=== PATIENT | male | born 2000 | race Caucasian/White ===

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

== ENCOUNTER 2020-05-19 16:20 | Emergency (ER) | payer OTHER ==
[2020-05-19 16:23] VITALS: BP 167/79; PULSE 78; RESP 18; TEMP 98.5
--- NOTE | 2020-05-19 17:45 | CT ---
EXAMINATION TYPE: CT brain shilpi wo con DATE OF EXAM: 05/19/2020 COMPARISON: None HISTORY: Posterior head injury. Headache and neck pain with dizziness. CT DLP: 1270.5 mGycm Automated exposure control for dose reduction was used. Images obtained of the brain and cervical spine without contrast. There is slight enlargement of the ventricles for the patient's young age. There is no mass effect no r midline shift. There is no sign of intracranial hemorrhage. The calvarium is intact. The skull base is intact. There is normal aeration of the mastoid sinuses. There is moderate mucosal thickening in the right maxillary sinus. The cervical vertebra have normal spacing and alignment. Posterior elements are intact. Facet joints are intact. Prevertebral soft tissues appear normal. IMPRESSION: Negative CT scan of the cervical spine. Negative CT scan of the brain. No evidence of acute traumatic injury of the brain and cervical spine. Very mild prominence of the ventricles for the patient's young age.
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
== END 2020-05-19 18:33 | disposition home or self-care (01) ==
LOC: EC 16:20
DX: S06.0X9A Concussion with loss of consciousness of unspecified duration, initial encounter (principal); V19.9XXA Pedal cyclist (driver) (passenger) injured in unspecified traffic accident, initial encounter; Y93.55 Activity, bike riding
CPT/HCPCS: 70450; 72125

== ENCOUNTER 2022-06-20 22:11 | Emergency (ER) | payer OTHER ==
[2022-06-20] MEDS ORDERED: NICOTINE 21MG/24HR PATCH TRANSDERM STA (22:49)
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
[2022-06-21 00:17] LABS: Appearance,Urine Clear (Clear); Bilirubin,Urine Negative (Negative); Blood,Urine Negative (Negative); Color,Urine Light Yellow; Glucose,Urine (UA) Negative (Negative); Ketones,Urine Negative (Negative); Leukocyte Esterase,Urine Negative (Negative); Nitrite,Urine Negative (Negative); Protein,Urine Negative (Negative); Specific Gravity,Urine 1.006 (1.001-1.035); Urobilinogen,Urine <2.0 mg/dL (<2.0)
[2022-06-21 00:27] LABS: Amphetamine Screen,Urine Not Detected (NotDetected); Barbiturate Screen,Urine Not Detected (NotDetected); Benzodiazepines Screen,Urine Not Detected (NotDetected); Cocaine Screen,Urine Not Detected (NotDetected); Methadone Screen, Urine Not Detected (NotDetected); Opiate Screen,Urine Not Detected (NotDetected); Oxycodone Screen, Urine Not Detected (NotDetected); Phencyclidine Screen,Urine Not Detected (NotDetected); Tricyclic Antidepressant,Urine Not Detected (NotDetected); Urn Cannabinoid Scrn Not Detected (NotDetected)
[2022-06-21 09:01] VITALS: TEMP 98
[2022-06-21 13:17] VITALS: BP 138/87; PULSE 84; RESP 16
== END 2022-06-21 13:18 | disposition home or self-care (01) ==
LOC: EC 22:11
DX: F32.A Depression, unspecified (principal); J45.909 Unspecified asthma, uncomplicated; F17.290 Nicotine dependence, other tobacco product, uncomplicated
CPT/HCPCS: 80306; 81003; 82075; 99285

== ENCOUNTER 2022-07-31 14:59 | Observation (INO) | payer OTHER ==
[2022-07-31] MEDS ORDERED: ONDANSETRON 4 MG/2 ML VIAL IVP STA (15:25)
[2022-07-31] MEDS ORDERED: SODIUM CHLORIDE 0.9% 1,000 ML IV STA ×3 (15:25→16:56)
[2022-07-31] MEDS ORDERED: LORazepam 2 MG/ML INJ IV STA ×2 (15:47→18:33)
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
[2022-07-31 16:02] LABS: Basophils % (A) 0 %; Eosinophils % (A) 0 %; HCT 45.3 % (39.0-53.0); Lymphocytes # (A) 1.4 k/uL (1.0-4.8); Lymphocytes % (A) 14 %; MCHC 35.4 g/dL (31.0-37.0); MCV 84.7 fL (80.0-100.0); Monocytes # (A) 0.4 k/uL (0-1.0); Monocytes % (A) 4 %; Neutrophils # (A) 7.8 k/uL (1.3-7.7); Neutrophils % (A) 80 %; Platelet Count 279 k/uL (150-450); RBC 5.34 m/uL (4.30-5.90); RDW 12.5 % (11.5-15.5); WBC 9.7 k/uL (3.8-10.6)
[2022-07-31 16:17] LABS: ALT 89 U/L (4-49); AST 72 U/L (17-59); African American GFR (CKD) >90 (>60 ml/min/1.73 sqM); Albumin 5.2 g/dL (3.5-5.0); Alkaline Phosphatase 71 U/L (38-126); Anion Gap 20 mmol/L; Blood Urea Nitrogen 8 mg/dL (9-20); Calcium 9.9 mg/dL (8.4-10.2); Carbon Dioxide 18 mmol/L (22-30); Chloride 101 mmol/L (98-107); Glucose 145 mg/dL (74-99); Magnesium 1.6 mg/dL (1.6-2.3); Non-African American GFR(CKD) >90 (>60 ml/min/1.73 sqM); Potassium 3.3 mmol/L (3.5-5.1); Sodium 139 mmol/L (137-145); Total Bilirubin 1.8 mg/dL (0.2-1.3); Total Protein 8.4 g/dL (6.3-8.2)
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
[2022-07-31] MEDS ORDERED: SODIUM CHLORIDE 0.9% 500 ML 500 ML IV STA (16:57)
[2022-07-31] MEDS ORDERED: POTASSIUM BICARBONATE/CIT AC 20 MEQ TABLET.EFF PO ONE ×2 (16:57)
[2022-07-31] MEDS ORDERED: MAGNESIUM OXIDE 400 MG TAB PO STA ×2 (16:58)
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
[2022-07-31] MEDS ORDERED: THIAMINE 100 MG/ML 2 ML VIAL IM STA (18:20)
[2022-07-31] MEDS ORDERED: NALOXONE 0.4 MG/ML 1 ML VIAL IV PRN (18:20)
[2022-07-31] MEDS ORDERED: LORazepam 2 MG/ML INJ IV PRN ×3 (18:25)
[2022-07-31] MEDS ORDERED: MORPHINE SULFATE 4 MG/ML SYRINGE IV PRN (18:31)
[2022-07-31] MEDS ORDERED: KETOROLAC 15 MG/ML 1 ML VIAL IVP STA (18:33)
[2022-07-31] MEDS: MULTIVITAMINS, THERA 1 EACH TAB PO SCH (19:07)
[2022-07-31] MEDS: PANTOPRAZOLE 40 MG/10 ML VIAL IV SCH (19:13)
[2022-07-31] MEDS: FOLIC ACID 1 MG TAB PO SCH (21:17)
[2022-08-01] MEDS: DEXTROSE 5%-0.45% NACL 1,000 ML IV SCH ×3 (01:07→18:00)
[2022-08-01] MEDS: MULTIVITAMINS, THERA 1 EACH TAB PO SCH (08:45)
[2022-08-01] MEDS: FOLIC ACID 1 MG TAB PO SCH (08:45)
[2022-08-01] MEDS: THIAMINE 100 MG TAB PO SCH (08:45)
[2022-08-01] MEDS: PANTOPRAZOLE 40 MG/10 ML VIAL IV SCH (08:45)
[2022-08-01 10:28] LABS: ALT 72 U/L (4-49); AST 44 U/L (17-59); African American GFR (CKD) >90 (>60 ml/min/1.73 sqM); Albumin 3.9 g/dL (3.5-5.0); Albumin/Globulin Ratio 1.5; Alkaline Phosphatase 46 U/L (38-126); Anion Gap 9 mmol/L; Blood Urea Nitrogen 9 mg/dL (9-20); Calcium 8.6 mg/dL (8.4-10.2); Carbon Dioxide 26 mmol/L (22-30); Chloride 103 mmol/L (98-107); Globulin 2.6 g/dL; Glucose 94 mg/dL (74-99); Magnesium 2.3 mg/dL (1.6-2.3); Non-African American GFR(CKD) >90 (>60 ml/min/1.73 sqM); Potassium 4.1 mmol/L (3.5-5.1); Sodium 138 mmol/L (137-145); Total Bilirubin 1.6 mg/dL (0.2-1.3); Total Protein 6.5 g/dL (6.3-8.2)
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
[2022-08-01 22:38] VITALS: RESP 16
[2022-08-02] MEDS: DEXTROSE 5%-0.45% NACL 1,000 ML IV SCH (03:03)
[2022-08-02 07:23] VITALS: BP 136/77; PULSE 58; TEMP 97.7
[2022-08-02] MEDS: PANTOPRAZOLE 40 MG/10 ML VIAL IV SCH (08:11)
[2022-08-02] MEDS: MULTIVITAMINS, THERA 1 EACH TAB PO SCH (08:11)
[2022-08-02] MEDS: THIAMINE 100 MG TAB PO SCH (08:11)
[2022-08-02] MEDS: FOLIC ACID 1 MG TAB PO SCH (08:11)
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
[2022-08-03] MEDS ORDERED: PANTOPRAZOLE 40 MG TABLET PO SCH (07:30)
== END 2022-08-02 11:18 | disposition home or self-care (01) ==
LOC: SUPCPDRO 14:59 → EC 14:59 → 6NMEDSUR 18:20
PROVIDERS: ADMIT Family Medicine; ATTEND Family Medicine
DX: S02.2XXA Fracture of nasal bones, initial encounter for closed fracture (principal); S06.0X0A Concussion without loss of consciousness, initial encounter; Y09 Assault by unspecified means; J34.2 Deviated nasal septum; R74.8 Abnormal levels of other serum enzymes; F10.239 Alcohol dependence with withdrawal, unspecified; E87.29 Other acidosis; E87.6 Hypokalemia; E83.39 Other disorders of phosphorus metabolism; J45.909 Unspecified asthma, uncomplicated; Z98.890 Other specified postprocedural states; F17.290 Nicotine dependence, other tobacco product, uncomplicated
CPT/HCPCS: 96376 ×3; 96361 ×2; 96372; 96374; 96375; 99285; 36415; 93005; 80053 ×2; 83605; 83735 ×2; 84100 ×2; 84484; 85025; 85610; 85730; 70486; 70450; G0378 ×3; J2060; J3411; J2405; J1885; C9113 ×3

== ENCOUNTER 2024-02-26 16:04 | Emergency (ER) | payer OTHER ==
--- NOTE | 2024-02-26 16:17 | ED ---
Fever HPI - General Chief Complaint: Abdominal Pain Stated Complaint: Vomiting, numbness, fever Time Seen by Provider: 02/26/24 16:14 Source: patient, RN notes reviewed, old records reviewed Mode of arrival: wheelchair Limitations: no limitations - History of Present Illness Initial Comments: This is a 23-year-old male to the ER for evaluation of fever body aches chills pain in both shoulders that started this morning when he woke up and progressively worsened. Patient denies any recent sick contacts or travel history but does admit to hanging out with friends last night and parting. He thought it was may be hung over when he woke up this morning but the symptoms persisted and got worse MD Complaint: fever, weakness -: days(s) Temperature Source: subjective Associated Symptoms: chills, myalgias, abdominal pain, nausea, vomiting Treatments Prior to Arrival: none - Related Data Home Medications Medication Instructions Recorded Confirmed No Known Home Medications 06/21/22 02/26/24 Allergies Allergy/AdvReac Type Severity Reaction Status Date / Time No Known Allergies Allergy Verified 02/26/24 16:11 Review of Systems ROS Statement: Those systems with pertinent positive or pertinent negative responses have been documented in the HPI. ROS Other: All systems not noted in ROS Statement are negative. Past Medical History Past Medical History: Asthma History of Any Multi-Drug Resistant Organisms: None Reported Past Surgical History: Orthopedic Surgery Additional Past Surgical History / Comment(s): right arm Past Psychological History: No Psychological Hx Reported Smoking Status: Former smoker Past Alcohol Use History: Daily, Occasional Past Drug Use History: None Reported General Exam Limitations: no limitations General appearance: alert, in no apparent distress Head exam: Present: atraumatic, normocephalic, normal inspection Eye exam: Present: normal appearance, PERRL, EOMI. Absent: scleral icterus, conjunctival injection, periorbital swelling ENT exam: Present: normal exam, mucous membranes moist Neck exam: Present: normal inspection. Absent: tenderness, meningismus, lymphadenopathy Respiratory exam: Present: normal lung sounds bilaterally. Absent: respiratory distress, wheezes, rales, rhonchi, stridor Cardiovascular Exam: Present: regular rate, normal rhythm, normal heart sounds. Absent: systolic murmur, diastolic murmur, rubs, gallop, clicks GI/Abdominal exam: Present: soft, normal bowel sounds. Absent: distended, tenderness, guarding, rebound, rigid Extremities exam: Present: normal inspection, full ROM, normal capillary refill. Absent: tenderness, pedal edema, joint swelling, calf tenderness Back exam: Present: normal inspection Neurological exam: Present: alert, oriented X3, CN II-XII intact Psychiatric exam: Present: normal affect, normal mood Skin exam: Present: warm, dry, intact, normal color. Absent: rash Course Vital Signs 02/26/24 02/26/24 02/26/24 16:08 17:22 17:50 Temperature 101.4 F H 101.1 F H 102.9 F H Pulse Rate 117 H 107 H Respiratory 20 30 H Rate Blood Pressure 132/64 131/74 O2 Sat by Pulse 99 99 Oximetry 02/26/24 02/26/24 18:55 19:58 Temperature 100.3 F H 98.0 F Pulse Rate 85 88 Respiratory 26 H 15 Rate Blood Pressure 127/47 112/58 O2 Sat by Pulse 97 97 Oximetry - Reevaluation(s) Reevaluation #1: 02/26/24 16:17 medical record is reviewed Reevaluation #2: 02/26/24 20:49 Patient symptoms improving and continue to improve here in the ER Reevaluation #3: 02/26/24 20:49 Patient informed of results questions answered Reevaluation #4: Was pt. sent in by a medical professional or institution (Dr. PA, CREW TRUCK DRIVER, urgent care, hospital, or care home...) When possible be specific @ -no Did you speak to anyone other than the patient for history (EMS, parent, family, police, friend...)? What history was obtained from this source @ -no Did you review nursing and triage notes (agree or disagree)? Why? @ -agree Are old charts reviewed (outside hosp., previous admission, EMS record, old EKG, old radiological studies, urgent care reports/EKG's, care home records)? Report findings @ -yes Differential Diagnosis (chest pain, altered mental status, abdominal pain women, abdominal pain men, vaginal bleeding, weakness, fever, dyspnea, syncope, headache, dizziness, GI bleed, back pain, seizure, CVA, palpatations, mental health, musculoskeletal)? @ -prior EKG interpreted by me (3pts min.). @ -yes X-rays interpreted by me (1pt min.). @ -yes negative for acute disease CT interpreted by me (1pt min.). @ -no U/S interpreted by me (1pt. min.). @ -no What testing was considered but not performed or refused? (CT, X-rays, U/S, labs)? Why? @ -none What meds were considered but not given or refused? Why? @ -none Did you discuss the management of the patient with other professionals (professionals i.e. , PA, CREW TRUCK DRIVER, lab, RT, psych nurse, oncology social work, field cane scaler helper, teacher, law enforcement officer, classification case manager)? Give summary @ -no Was smoking cessation discussed for >3mins.? @ -no Was critical care preformed (if so, how long)? @ -no Were there social determinants of health that impacted care today? How? (Homelessness, low income, unemployed, alcoholism, drug addiction, transportation, low edu. Level, literacy, decrease access to med. care, residential, rehab)? @ -none Was there de-escalation of care discussed even if they declined (Discuss DNR or withdrawal of care, Hospice)? DNR status @ -no What co-morbidities impacted this encounter? (DM, HTN, Smoking, COPD, CAD, Cancer, CVA, ARF, Chemo, Hep., AIDS, mental health diagnosis, sleep apnea, morbid obesity)? @ -none Was patient admitted / discharged? Hospital course, mention meds given and route, prescriptions, significant lab abnormalities, going to OR and other pertinent info. @ - Undiagnosed new problem with uncertain prognosis? @ -no Drug Therapy requiring intensive monitoring for toxicity (Heparin, Nitro, Insulin, Cardizem)? @ -no Were any procedures done? @ -no Diagnosis/symptom? @ - Acute, or Chronic, or Acute on Chronic? @ -Acute Uncomplicated (without systemic symptoms) or Complicated (systemic symptoms)? @ -Complicated Side effects of treatment? @ -no Exacerbation, Progression, or Severe Exacerbation? @ -exacerbation Poses a threat to life or bodily function? How? (Chest pain, [place], [place], pneumonia, PE, COPD, DKA, ARF, appy, cholecystitis, CVA, Diverticulitis, Homicidal, Suicidal, threat to staff... and all critical care pts) @ -yes Reevaluation #5: Differential Fever: Pneumonia, viral URI, endocarditis, myocarditis, pericarditis, otitis, sinusitis, peritonsillar Abscess, retropharyngeal Abscess, epiglottitis, peritonitis, appendicitis, Anu cystitis, diverticulitis, hepatitis, colitis, UTI, PID, TOA, pyelonephritis, prostatitis, epididymitis, meningitis, encephalitis, pulmonary embolism, CVA, thyroid storm, pancreatitis, adrenal crisis, cavernous sinus thrombosis, this is not meant to be an all-inclusive list. Medical Decision Making - Medical Decision Making 23 male can be discharged at this time, patient had fever fever unknown origin viral testing negative x-ray negative patient feels well can be discharged home - Lab Data Result diagrams: 02/26/24 16:57 02/26/24 16:57 Lab Results 02/26/24 02/26/24 02/26/24 Range/Units 16:57 16:57 16:57 WBC 8.1 (3.8-10.6) k/uL RBC 5.45 (4.30-5.90) m/uL Hgb 15.7 (13.0-17.5) gm/dL Hct 46.9 (39.0-53.0) % MCV 86.1 (80.0-100.0) fL MCH 28.9 (25.0-35.0) pg MCHC 33.6 (31.0-37.0) g/dL RDW 11.8 (11.5-15.5) % Plt Count 236 (150-450) k/uL MPV 6.7 Neutrophils % 92 % Lymphocytes % 3 % Monocytes % 5 % Eosinophils % 0 % Basophils % 0 % Neutrophils # 7.4 (1.3-7.7) k/uL Lymphocytes # 0.2 L (1.0-4.8) k/uL Monocytes # 0.4 (0-1.0) k/uL Eosinophils # 0.0 (0-0.7) k/uL Basophils # 0.0 (0-0.2) k/uL PT 12.2 (10.0-12.5) sec INR 1.1 (<1.2) Sodium 136 L (137-145) mmol/L Potassium 3.7 (3.5-5.1) mmol/L Chloride 97 L (98-107) mmol/L Carbon Dioxide 21 L (22-30) mmol/L Anion Gap 18 mmol/L BUN 14 (9-20) mg/dL Creatinine 0.98 (0.66-1.25) mg/dL Est GFR (CKD-EPI)AfAm >90 (>60 ml/min/1.73 sqM) Est GFR (CKD-EPI)NonAf >90 (>60 ml/min/1.73 sqM) Glucose 105 H (74-99) mg/dL Lactic Ac Sepsis Rflx Plasma Lactic Acid Joce (0.7-2.0) mmol/L Calcium 9.9 (8.4-10.2) mg/dL Phosphorus 1.3 L (2.5-4.5) mg/dL Magnesium 1.5 L (1.6-2.3) mg/dL Total Bilirubin 1.0 (0.2-1.3) mg/dL AST 35 (17-59) U/L ALT 43 (4-49) U/L Alkaline Phosphatase 62 (38-126) U/L Total Protein 9.4 H (6.3-8.2) g/dL Albumin 5.6 H (3.5-5.0) g/dL Lipase 106 (23-300) U/L Serum Alcohol <10 mg/dL Influenza Type A (PCR) (Not Detectd) Influenza Type B (PCR) (Not Detectd) RSV (PCR) (Not Detectd) SARS-CoV-2 (PCR) (Not Detectd) 02/26/24 02/26/24 02/26/24 Range/Units 16:57 16:57 18:20 WBC (3.8-10.6) k/uL RBC (4.30-5.90) m/uL Hgb (13.0-17.5) gm/dL Hct (39.0-53.0) % MCV (80.0-100.0) fL MCH (25.0-35.0) pg MCHC (31.0-37.0) g/dL RDW (11.5-15.5) % Plt Count (150-450) k/uL MPV Neutrophils % % Lymphocytes % % Monocytes % % Eosinophils % % Basophils % % Neutrophils # (1.3-7.7) k/uL Lymphocytes # (1.0-4.8) k/uL Monocytes # (0-1.0) k/uL Eosinophils # (0-0.7) k/uL Basophils # (0-0.2) k/uL PT (10.0-12.5) sec INR (<1.2) Sodium (137-145) mmol/L Potassium (3.5-5.1) mmol/L Chloride (98-107) mmol/L Carbon Dioxide (22-30) mmol/L Anion Gap mmol/L BUN (9-20) mg/dL Creatinine (0.66-1.25) mg/dL Est GFR (CKD-EPI)AfAm (>60 ml/min/1.73 sqM) Est GFR (CKD-EPI)NonAf (>60 ml/min/1.73 sqM) Glucose (74-99) mg/dL Lactic Ac Sepsis Rflx Y Plasma Lactic Acid Joce 2.5 H* (0.7-2.0) mmol/L Calcium (8.4-10.2) mg/dL Phosphorus (2.5-4.5) mg/dL Magnesium (1.6-2.3) mg/dL Total Bilirubin (0.2-1.3) mg/dL AST (17-59) U/L ALT (4-49) U/L Alkaline Phosphatase (38-126) U/L Total Protein (6.3-8.2) g/dL Albumin (3.5-5.0) g/dL Lipase (23-300) U/L Serum Alcohol mg/dL Influenza Type A (PCR) Not Detected (Not Detectd) Influenza Type B (PCR) Not Detected (Not Detectd) RSV (PCR) Not Detected (Not Detectd) SARS-CoV-2 (PCR) Not Detected (Not Detectd) - Radiology Data Radiology results: report reviewed (Chest x-ray is negative for acute disease), image reviewed Disposition Clinical Impression: Weakness, Tachycardia, Fever Disposition: HOME SELF-CARE Condition: Good Instructions (If sedation given, give patient instructions): Fever in Adults (ED) Is patient prescribed a controlled substance at d/c from ED?: No Referrals: None,Stated [Primary Care Provider] - 1-2 days Time of Disposition: 20:25
[2024-02-26] MEDS: LORazepam 2 MG/ML INJ IV STA (16:58)
[2024-02-26] MEDS: SODIUM CHLORIDE 0.9% 1,000 ML IV STA ×3 (17:01→19:48)
[2024-02-26 17:12] LABS: Basophils % (A) 0 %; Eosinophils % (A) 0 %; HCT 46.9 % (39.0-53.0); HGB 15.7 gm/dL (13.0-17.5); Lymphocytes # (A) 0.2 k/uL (1.0-4.8); Lymphocytes % (A) 3 %; MCH 28.9 pg (25.0-35.0); MCHC 33.6 g/dL (31.0-37.0); MCV 86.1 fL (80.0-100.0); Mean Platelet Volume 6.7; Monocytes # (A) 0.4 k/uL (0-1.0); Monocytes % (A) 5 %; Neutrophils # (A) 7.4 k/uL (1.3-7.7); Neutrophils % (A) 92 %; Platelet Count 236 k/uL (150-450); RBC 5.45 m/uL (4.30-5.90); RDW 11.8 % (11.5-15.5); WBC 8.1 k/uL (3.8-10.6)
[2024-02-26 17:18] LABS: INR 1.1 (<1.2); Prothrombin Time 12.2 sec (10.0-12.5)
[2024-02-26 17:25] LABS: ALT 43 U/L (4-49); AST 35 U/L (17-59); African American GFR (CKD) >90 (>60 ml/min/1.73 sqM); Albumin 5.6 g/dL (3.5-5.0); Alcohol <10 mg/dL; Alkaline Phosphatase 62 U/L (38-126); Anion Gap 18 mmol/L; Blood Urea Nitrogen 14 mg/dL (9-20); Calcium 9.9 mg/dL (8.4-10.2); Carbon Dioxide 21 mmol/L (22-30); Chloride 97 mmol/L (98-107); Glucose 105 mg/dL (74-99); Lipase 106 U/L (23-300); Magnesium 1.5 mg/dL (1.6-2.3); Non-African American GFR(CKD) >90 (>60 ml/min/1.73 sqM); Phosphorus 1.3 mg/dL (2.5-4.5); Potassium 3.7 mmol/L (3.5-5.1); Sodium 136 mmol/L (137-145); Total Protein 9.4 g/dL (6.3-8.2)
--- NOTE | 2024-02-26 17:38 | XR ---
EXAMINATION TYPE: XR chest 2V DATE OF EXAM: 02/26/2024 5:31 PM COMPARISON: Chest radiographs from CLINICAL INDICATION: Male, 23 years old with history of cough; [facility] TECHNIQUE: XR chest 2V Frontal and lateral views of the chest. FINDINGS: Lungs/Pleura: There is no evidence of pleural effusion, focal consolidation, or pneumothorax. Pulmonary vascularity: Unremarkable. Heart/mediastinum: Cardiomediastinal silhouette is unremarkable. Musculoskeletal: No acute osseous pathology. Other findings: None IMPRESSION: No acute cardiopulmonary disease/process. [facility], , 02/26/2024 5:35 PM
[2024-02-26] MEDS: ACETAMINOPHEN IV (For NPO) 1,000 MG in EMPTY BAG 1 BAG IVPB STA (17:40)
[2024-02-26] MEDS: IBUPROFEN IV 800 MG in SODIUM CHLORIDE 0.9% 250 ML IV ONE (18:06)
[2024-02-26] MEDS: MAGNESIUM SULFATE-D5W PMX 1 GM in DEXTROSE/WATER 1 100ML.BAG IVPB SCH (18:44)
[2024-02-26] MEDS ORDERED: SODIUM CHLORIDE 0.9% 500 ML 500 ML IV STA (19:26)
[2024-02-26] MEDS: MAGNESIUM OXIDE 400 MG TAB PO STA ×2 (19:48)
[2024-02-26 21:01] VITALS: BP 114/64; PULSE 71; RESP 16
[2024-02-26 21:01] LABS: Appearance,Urine Clear (Clear); Bilirubin,Urine Negative (Negative); Blood,Urine Negative (Negative); Color,Urine Light Yellow; Glucose,Urine (UA) Negative (Negative); Ketones,Urine 1+ (Negative); Leukocyte Esterase,Urine Negative (Negative); Nitrite,Urine Negative (Negative); Protein,Urine Negative (Negative); Specific Gravity,Urine 1.019 (1.001-1.035)
[2024-02-26 21:02] VITALS: TEMP 98.2
[2024-02-26 21:22] LABS: Amphetamine Screen,Urine Not Detected (NotDetected); Barbiturate Screen,Urine Not Detected (NotDetected); Benzodiazepines Screen,Urine Detected (NotDetected); Cocaine Screen,Urine Not Detected (NotDetected); Methadone Screen, Urine Not Detected (NotDetected); Opiate Screen,Urine Not Detected (NotDetected); Oxycodone Screen, Urine Not Detected (NotDetected); Phencyclidine Screen,Urine Not Detected (NotDetected); Tricyclic Antidepressant,Urine Not Detected (NotDetected); Urn Cannabinoid Scrn Not Detected (NotDetected)
== END 2024-02-26 21:01 | disposition home or self-care (01) ==
LOC: EC 16:04
DX: R50.9 Fever, unspecified (principal); R53.1 Weakness; R00.0 Tachycardia, unspecified; Z87.891 Personal history of nicotine dependence
CPT/HCPCS: 36415; 80053; 83605; 83690; 83735; 84100; 85025; 85610; 81003; 87040; 80306; 80320; 87636; 71046; 99284; 96365; 96366; 96375 ×3; 96361 ×2; J2060; J3475; J0131; J1741